=== PATIENT | female | born 1960 | race African-American/Black ===

== ENCOUNTER 2024-01-13 15:39 | Emergency (ER) | payer OTHER ==
[~2024-01-13] VITALS: Ht 152.4 cm; Wt 57.6 kg
[2024-01-13 16:00] VITALS: PULSE 83; RESP 18; TEMP 98.4
[2024-01-13] MEDS ORDERED: METHOCARBAMOL750 MG PO (17:48)
[2024-01-13 19:00] VITALS: BP 124/84; PULSE 84; RESP 18; TEMP 98.6; O2SAT 99
== END 2024-01-13 17:59 | disposition home or self-care (01) ==
LOC: ER 17:30
DX: R51.9 Headache, unspecified (principal); S39.012A Strain of muscle, fascia and tendon of lower back, initial encounter; V89.2XXA Person injured in unspecified motor-vehicle accident, traffic, initial encounter; Y92.488 Other paved roadways as the place of occurrence of the external cause; I10 Essential (primary) hypertension; Z86.73 Personal history of transient ischemic attack (TIA), and cerebral infarction without residual deficits
CPT/HCPCS: 70450; 72125; 99283